=== PATIENT | female | born 1935 | race African-American/Black ===

== ENCOUNTER 2017-12-23 09:01 | Emergency (ER) | payer OTHER ==
[~2017-12-23] VITALS: Ht 160 cm; Wt 86.2 kg
[~2017-12-23 09:01] MED LIST: ACETAMINOPHEN-1 EAC1 PO; COLCHICINE0.6 MG PO; DEMADEX100 MG PO; DEMADEX20 MG PO; GLIPIZIDE ER5 MG; GLUCOPHAGE XR500 MG; HYDRALAZINE 2525 M1 PO; HYDROCHLOROTHIA50 MG; HYDROCODONE-AP1 EAC6 PO; K-DUR 20 MEQ T20 MEQ PO; KLOR-CON 1010 MEQ PO; LEVEMIR SUBQ; LEVSIN0.125 MG PO; LIPITOR10 MG PO; LISINOPRIL40 MG; NIFEDIPINE ER90 M1; NORCO 5-325 TA1 EACH PO; NORFLEX100 MG PO; NORTRIPTYLINE H25 M3; NORTRIPTYLINE H25 M3 PO; NORVASC5 MG PO; NOVOLOG100 UNIT/1 SUBQ; OMEPRAZOLE20 M2; PROTONIX40 M2; SENNA8.6 MG PO; TIROSINT88 MCG; TOPROL XL100 MG PO; TOPROL XL50 MG PO; VENTOLIN HFA 1818 GM INH; ZANTAC 150MG T150 MG PO
[2017-12-23] MEDS ORDERED: MOBIC15 MG PO (10:20)
[2017-12-23 10:29] VITALS: BP 147/74
== END 2017-12-23 10:33 | disposition home or self-care (01) ==
LOC: ER 09:01
DX: M16.11 Unilateral primary osteoarthritis, right hip (principal); E11.9 Type 2 diabetes mellitus without complications; K21.9 Gastro-esophageal reflux disease without esophagitis; E78.00 Pure hypercholesterolemia, unspecified; I11.0 Hypertensive heart disease with heart failure; I50.9 Heart failure, unspecified; Z79.4 Long term (current) use of insulin

== ENCOUNTER → 2018-01-08 | Outpatient (CLI) | payer OTHER ==
[~2018-01-08] MED LIST changes: +MOBIC15 MG PO
== END | disposition home or self-care (01) ==
LOC: RAD 09:24
DX: M25.551 Pain in right hip (principal); I13.0 Hypertensive heart and chronic kidney disease with heart failure and stage 1 through stage 4 chronic kidney disease, or unspecified chronic kidney disease; E11.22 Type 2 diabetes mellitus with diabetic chronic kidney disease; N18.4 Chronic kidney disease, stage 4 (severe); I50.9 Heart failure, unspecified; M19.90 Unspecified osteoarthritis, unspecified site; M10.9 Gout, unspecified; E78.00 Pure hypercholesterolemia, unspecified; K21.9 Gastro-esophageal reflux disease without esophagitis; Z79.891 Long term (current) use of opiate analgesic; Z79.4 Long term (current) use of insulin; Z79.899 Other long term (current) drug therapy; Z98.890 Other specified postprocedural states

== ENCOUNTER 2018-02-06 14:39 | Emergency (ER) | payer OTHER ==
[~2018-02-06] VITALS: Ht 160 cm; Wt 87.1 kg
[2018-02-06] MEDS ORDERED: SENNA8.6 MG PO (15:45)
[2018-02-06] MEDS ORDERED: NORCO 5-325 TA1 EACH PO (15:45)
[2018-02-06] MEDS ORDERED: LIORESAL 10 MG10 MG PO (15:46)
[2018-02-06 15:58] VITALS: BP 158/86
== END 2018-02-06 16:12 | disposition home or self-care (01) ==
LOC: ER 14:39
DX: M54.32 Sciatica, left side (principal); E11.9 Type 2 diabetes mellitus without complications; K21.9 Gastro-esophageal reflux disease without esophagitis; I11.0 Hypertensive heart disease with heart failure; I50.9 Heart failure, unspecified; E78.00 Pure hypercholesterolemia, unspecified; Z79.4 Long term (current) use of insulin

== ENCOUNTER 2019-07-31 07:39 | Emergency (ER) | payer MEDICARE ==
[~2019-07-31] VITALS: Ht 160 cm; Wt 81.7 kg
[~2019-07-31 07:39] MED LIST changes: +AMLODIPINE BESY10 MG PO; +BAYER BACK & B1 EACH PO; +CENTRUM SILVER1 EAC4 PO; +COREG25 MG PO; +IRON325 M1 PO; +LIORESAL 10 MG10 MG PO; +LISINOPRIL10 MG PO; +LISINOPRIL40 MG PO; +PREDNISONE 10 M10 MG PO; +SPIRONOLACTONE25 M1 PO
[2019-07-31 08:46] LABS: ABSOLUTE NEUTROPHILS 3.9 thou/uL (1.4-8.2); BASOPHILS 0.5 % (0.0-2.0); EOSINOPHILS 4.1 % (0.0-3.0); HEMATOCRIT 42.4 % (37.0-47.0); HEMOGLOBIN 13.8 gm/dL (12.0-15.0); LYMPHOCYTES 12.8 % (24.0-44.0); MCH 27.1 pg (26.0-34.0); MCHC 32.5 g/dL (28.0-37.0); MCV 83.3 fL (80.0-100.0); MONOCYTES 7.7 % (1.0-8.0); PLATELET COUNT 167 thou/uL (150-400); POLYS 74.9 % (36.0-66.0); RBC 5.09 mil/uL (4.20-5.00); RDW 16.3 % (10.5-14.5); WBC 5.2 thou/uL (4.0-11.0)
[2019-07-31 08:58] LABS: ANION GAP 11 mmol/L (7-16); BUN 29 mg/dL (7-18); CALCIUM 8.8 mg/dL (8.5-10.1); CHLORIDE 104 mmol/L (98-107); CO2 28 mmol/L (21-32); CREATININE 1.3 mg/dL (0.6-1.0); GLUCOSE 114 mg/dL (74-106); SODIUM 143 mmol/L (136-145)
[2019-07-31 09:07] LABS: TROPONIN-I <0.06 ng/mL (<0.06)
[2019-07-31 09:29] LABS: URINE BILIRUBIN NEGATIVE (Negative); URINE BLOOD 1+ (Negative); URINE CLARITY CLEAR; URINE COLOR YELLOW; URINE GLUCOSE-RANDOM* NEGATIVE (Negative); URINE KETONES NEGATIVE (Negative); URINE LEUKOCYTES-REFLEX TRACE (Negative); URINE NITRITE-REFLEX NEGATIVE (Negative); URINE PROTEIN (DIPSTICK) 2+ (Negative); URINE UROBILINOGEN 0.2 E.U./dl (0.2-1.0)
[2019-07-31 09:42] LABS: CASTS None Seen /LPF (None Seen); SQUAMOUS 4-10 Moderate /LPF (0-3); URINE WBC-REFLEX 0-5 Rare /HPF (0-5)
[2019-07-31 09:43] LABS: BACTERIA-REFLEX None Seen /HPF (None Seen); CRYSTALS None Seen /LPF (None Seen); URINE RBC 0-2 Rare /HPF (0-2)
[2019-07-31] MEDS ORDERED: POTASSIUM20 PO (11:19)
[2019-07-31] MEDS ORDERED: LOPERAMIDE 2 MG2 M1 PO (11:20)
[2019-07-31 11:50] VITALS: BP 159/74
--- NOTE | 2019-08-02 07:56 | EKG ---
[facility] [place] [address] ELECTROCARDIOGRAM REPORT Name: CHAYITO MARTINEZ Room #: DEP [facility]#: [id number] Admission: 07/31/19 Attend Phys: Discharge: 07/31/19 Date of : 35 Report #: [id number] THIS REPORT FOR: cc: Chadwick Monzon MD, Keninde A. 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[facility] : 1935 Requested By: Jethro Renee Order Number: [id number] MD: Lavon Gresham Measurements Intervals Harvey Rate: 78 P: -15 GA: 161 QRS: 74 QRSD: 116 T: 70 QT: 424 QTc: 484 Interpretive Statements Sinus rhythm Atrial premature complexes Right ventricular conduction delay Compared to ECG 09/11/2018 10:30:06 Atrial premature complex(es) now present Electronically Signed On 08-02-2019 7:54:55 CDT by Lavon Gresham [email or web address] <ELECTRONICALLY SIGNED> By: Lavon Gresham MD, [facility] 08/02/19 0754 0801 0801 Lavon Gresham MD, [facility] /EPI
== END 2019-07-31 11:50 | disposition home or self-care (01) ==
LOC: ER 07:39
PROVIDERS: Emergency Medicine
DX: R42 Dizziness and giddiness (principal); R19.7 Diarrhea, unspecified; R51 Headache; E11.9 Type 2 diabetes mellitus without complications; K21.9 Gastro-esophageal reflux disease without esophagitis; E78.00 Pure hypercholesterolemia, unspecified; M10.9 Gout, unspecified; I25.10 Atherosclerotic heart disease of native coronary artery without angina pectoris; I11.0 Hypertensive heart disease with heart failure; I50.9 Heart failure, unspecified; Z79.899 Other long term (current) drug therapy; Z79.82 Long term (current) use of aspirin; Z79.4 Long term (current) use of insulin

== ENCOUNTER 2020-04-08 10:44 | Emergency (ER) | payer MEDICARE ==
[~2020-04-08] VITALS: Ht 160 cm; Wt 81.7 kg
[~2020-04-08 10:44] MED LIST changes: +LOPERAMIDE 2 MG2 M1 PO; +POTASSIUM20 PO
[2020-04-08 11:13] LABS: URINE BILIRUBIN NEGATIVE (Negative); URINE BLOOD TRACE (Negative); URINE CLARITY CLEAR; URINE COLOR YELLOW; URINE GLUCOSE-RANDOM* NEGATIVE (Negative); URINE KETONES NEGATIVE (Negative); URINE NITRITE-REFLEX NEGATIVE (Negative); URINE PROTEIN (DIPSTICK) 2+ (Negative); URINE UROBILINOGEN 0.2 E.U./dl (0.2-1.0)
[2020-04-08 11:14] LABS: URINE LEUKOCYTES-REFLEX 3+ (Negative)
[2020-04-08 11:22] LABS: SQUAMOUS >10 Many /LPF (0-3)
[2020-04-08 11:23] LABS: BACTERIA-REFLEX >30 Many /HPF (None Seen); CASTS None Seen /LPF (None Seen); CRYSTALS None Seen /LPF (None Seen); URINE RBC 0-2 Rare /HPF (0-2); URINE WBC-REFLEX >25 Many /HPF (0-5)
[2020-04-08 11:51] LABS: ABSOLUTE NEUTROPHILS 4.3 thou/uL (1.4-8.2); BASOPHILS 0.5 % (0.0-2.0); EOSINOPHILS 3.5 % (0.0-3.0); HEMATOCRIT 41.2 % (37.0-47.0); HEMOGLOBIN 12.9 gm/dL (12.0-15.0); LYMPHOCYTES 10.5 % (24.0-44.0); MCH 27.1 pg (26.0-34.0); MCHC 31.2 g/dL (28.0-37.0); MCV 86.7 fL (80.0-100.0); MONOCYTES 6.8 % (1.0-8.0); PLATELET COUNT 137 thou/uL (150-400); POLYS 78.7 % (36.0-66.0); RBC 4.75 mil/uL (4.20-5.00); WBC 5.5 thou/uL (4.0-11.0)
[2020-04-08 12:05] LABS: CALCIUM 9.1 mg/dL (8.5-10.1); CREATININE 1.6 mg/dL (0.6-1.0)
[2020-04-08 12:07] LABS: POTASSIUM 4.7 mmol/L (3.5-5.1)
[2020-04-08] MEDS ORDERED: KEFLEX500 M1 PO (12:18)
[2020-04-08 12:31] VITALS: BP 169/65
[2020-04-08 14:59] LABS: ANISOCYTOSIS 2+; OVALOCYTES FEW
== END 2020-04-08 12:55 | disposition home or self-care (01) ==
LOC: ER 10:44
PROVIDERS: Emergency Medicine
DX: N93.8 Other specified abnormal uterine and vaginal bleeding (principal); N39.0 Urinary tract infection, site not specified; E11.9 Type 2 diabetes mellitus without complications; K21.9 Gastro-esophageal reflux disease without esophagitis; I11.0 Hypertensive heart disease with heart failure; I50.9 Heart failure, unspecified; M10.9 Gout, unspecified; E78.00 Pure hypercholesterolemia, unspecified; Z96.653 Presence of artificial knee joint, bilateral; Z79.899 Other long term (current) drug therapy; Z79.82 Long term (current) use of aspirin

== ENCOUNTER 2020-10-30 17:58 | Inpatient (IN) | payer MEDICARE ==
[~2020-10-30] VITALS: Ht 160 cm; Wt 92.8 kg
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
[~2020-10-30 17:58] MED LIST changes: +KEFLEX500 M1 PO
[2020-10-30 18:00] VITALS: BP 141/76
--- NOTE | 2020-10-30 18:14 | NUR ---
HARSHAD HUBER (DAUGHTER) [phone]
[2020-10-30 18:15] LABS: ABSOLUTE NEUTROPHILS 4.3 thou/uL (1.4-8.2); BASOPHILS 0.5 % (0.0-2.0); EOSINOPHILS 1.7 % (0.0-3.0); HEMATOCRIT 34.2 % (37.0-47.0); HEMOGLOBIN 10.8 gm/dL (12.0-15.0); LYMPHOCYTES 14.7 % (24.0-44.0); MCH 27.2 pg (26.0-34.0); MCHC 31.6 g/dL (28.0-37.0); MONOCYTES 6.4 % (1.0-8.0); PLATELET COUNT 204 thou/uL (150-400); POLYS 76.7 % (36.0-66.0); RBC 3.98 mil/uL (4.20-5.00); RDW 19.2 % (10.5-14.5); WBC 5.6 thou/uL (4.0-11.0)
[2020-10-30 18:22] LABS: ANION GAP 13 mmol/L (7-16); BUN 41 mg/dL (7-18); CALCIUM 8.8 mg/dL (8.5-10.1); CHLORIDE 108 mmol/L (98-107); CO2 25 mmol/L (21-32); CREATININE 1.9 mg/dL (0.6-1.0); GLUCOSE 175 mg/dL (74-106); POTASSIUM 3.8 mmol/L (3.5-5.1); SODIUM 146 mmol/L (136-145)
[2020-10-30 18:30] LABS: APTT 29.3 Seconds (24.5-32.8); INR 1.21; PROTIME 13.1 Seconds (10.5-12.1)
[2020-10-30 18:33] LABS: ALBUMIN 3.5 g/dL (3.4-5.0); LIPASE 62 U/L (73-393); SGOT 44 U/L (15-37); SGPT 59 U/L (30-65); TOTAL BILIRUBIN 0.8 mg/dL (0.2-1.0); TOTAL PROTEIN 7.2 g/dL (6.4-8.2); TROPONIN-I <0.06 ng/mL (<0.06)
[2020-10-31] VITALS (7 sets, daily range): BP systolic 114–165; BP diastolic 55–71
[2020-10-31] MEDS ORDERED: LIPITOR 40 MG T40 M1 PO (05:22)
[2020-10-31] MEDS ORDERED: ALLOPURINOL 10100 M1 PO (05:23)
[2020-10-31] MEDS ORDERED: ELIQUIS2.5 MG PO (05:23)
[2020-10-31] MEDS ORDERED: ZESTRIL40 MG PO (05:25)
[2020-10-31] MEDS ORDERED: OMEPRAZOLE 20 M20 M1 PO (05:27)
--- NOTE | 2020-10-31 07:26 | EKG ---
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 <ELECTRONICALLY SIGNED> By: Niko Tovar MD, [facility] 10/31/20 0726 180 06 Niko Tovar MD, [facility] /EPI
--- NOTE | 2020-10-31 08:07 | NUR ---
ADMITTED FROM ER PER CART AT 0610. DENIES COMPLAINTS OF PAIN. ADMISSION PROCESS STARTED. TELEMETRY SHOWS SR. ORIENTED TO ROOM AND FLOOR POLICIES. CONTINUE TO ASSES.
[2020-10-31 09:22] LABS: HEMATOCRIT 32.5 % (37.0-47.0); HEMOGLOBIN 10.1 gm/dL (12.0-15.0); MCH 26.7 pg (26.0-34.0); MCV 86.1 fL (80.0-100.0); RBC 3.77 mil/uL (4.20-5.00); RDW 18.8 % (10.5-14.5); WBC 5.9 thou/uL (4.0-11.0)
[2020-10-31 09:29] LABS: CALCIUM 8.6 mg/dL (8.5-10.1); POTASSIUM 3.5 mmol/L (3.5-5.1)
--- NOTE | 2020-10-31 12:28 | 2DMMODE ---
[facility] [place] [address] 2 D/M-MODE ECHOCARDIOGRAM Name: CHAYITO MARTINEZ Room #: 205-P ADM IN M.R.#: [id number] Admission: 10/30/20 Attend Phys: Ramírez Miranda MD Discharge: Date of : 35 Report #: [id number] THIS REPORT FOR: cc: Chadwick Monzon MD, Keninde A. MD Santiago, Patrick MD [facility] ~ APPROVED REPORT Study performed: 10/31/2020 11:33:28 EXAM: Comprehensive 2D, Doppler, and color-flow Echocardiogram Patient Location: Bedside Room #: 205 Status: routine BSA: 1.90 HR: 54 bpm BP: 154/64 mmHg Rhythm: NSR Other Information Study Quality: Adequate Indications Syncope, leg edema, short of breath. Hx: CHF, aorta tear, HTN, HLP, DM. 2D Dimensions RVDd: 50.71 mm IVSd: 14.21 (7-11mm) LVOT Diam: 18.92 (18-24mm) LVDd: 43.96 mm PWd: 11.77 (7-11mm) Ascending Ao: 33.65 (22-36mm) LVDs: 28.46 (25-40mm) Left Atrium: 34.68 (27-40mm) Aortic Root: 31.78 mm Volumes Left Atrial Volume (Systole) Single Plane 4CH: 54.46 mL Aortic Valve AoV Peak Roosevelt.: 1.93 m/s AO Peak Gr.: 14.97 mmHg LVOT Max P.00 mmHg AO Mean Gr.: 6.62 mmHg AO V2 Mean: 1.21 m/s LVOT Max V: 1.00 m/s [facility] [place] [address] [place] [address] 2 D/M-MODE ECHOCARDIOGRAM Name: MARTINEZMARKA Room #: [address] [place] [address] IN ..#: [id number] Admission: 10/30/20 Attend Phys: Jaime Maravilla Discharge: Date of : 35 Report #: [id number] AO V2 VTI: 37.96 cm TORRES Vmax: 1.45 cm2 AI Vmax: 4.26 m/s AI [place]: 2.58 m/s2 AI PHT: 479.20 ms Mitral Valve E/A Ratio: 1.2 MV Decel. Time: 164.23 ms MV E Max Roosevelt.: 0.80 m/s MV A Roosevelt.: 0.66 m/s MV PHT: 47.63 ms IVRT: 78.43 ms Pulmonary Valve PV Peak Roosevelt.: 0.90 m/s PV Peak Gr.: 3.27 mmHg Tricuspid Valve TR Peak Roosevelt.: 3.79 m/s RAP Estimate: 15.00 mmHg TR Peak Gr.: 58.00 mmHg PA Pressure: 73.00 mmHg Left Ventricle The left ventricle is normal size. Flattened septum consistent with right ventricular volume/pressure overload. There is normal LV segmental wall motion. Moderate concentric left ventricular hypertrophy. Left ventricular systolic function is normal. LVEF is 60-65%. Right Ventricle Right ventricle is severely dilated. Atria Left atrium is mildly dilated. Right atrium is severely dilated. Aortic Valve The aortic valve is normal in structure; leaflets are moderately calcified. Mild aortic regurgitation. Mild aortic stenosis (TORRES by continuity equation is 1.5cm2). Mitral Valve Mitral valve leaflets are thickened. There is mitral annular calcification. Mild mitral regurgitation. No evidence of mitral valve stenosis. [facility] [address] [place] [address] 2 D/M-MODE ECHOCARDIOGRAM Name: CHAYITO MARTINEZ Room #: [address] [place] [address] IN ..#: [id number] Admission: 10/30/20 Attend Phys: Jaime Maravilla Discharge: Date of : 35 Report #: [id number] Tricuspid Valve The tricuspid valve is normal in structure. Severe tricuspid regurgitation. Estimated PAP is 70mmHg. Pulmonic Valve The pulmonary valve is normal in structure. Moderate pulmonic regurgitation. Great Vessels The aortic root is normal in size. The ascending aorta is normal in size. IVC is dilated and collapses <50% with inspiration. Pericardium There is no pericardial effusion. <Conclusion> Normal left ventricular size with moderate concentric hypertrophy Ejection fraction 60-65% Right ventricle severely dilated/normal wall thickness Left atrium mildly dilated The right atrium severely dilated Color-flow Doppler study was performed of the aortic/mitral/tricuspid/pulmonary valve Aortic valve moderately calcified Mild aortic valve insufficiency Mild aortic valve stenosis aortic valve area estimated 1.5 cm Severe tricuspid valve insufficiency Severe pulmonary hypertension PA pressure estimated at 70 mmHg No pericardial effusion IVC moderately dilated but responsive to respiration Normal aortic root size <ELECTRONICALLY SIGNED> By: Niko Tovar MD, [facility] 10/31/20 1228 1228 1228 Niko Tovar MD, [facility] /INF
--- NOTE | 2020-10-31 16:04 | NUR ---
PATIENT ADMITTED AT SHIFT CHANGE. VSS THROUGH OUT THE DAY. SEEN BY DR. HARLEY. CONSULTS CALLED FOR CTS AND PULMONARY. NOTED PRN DR. CRICKET HERNANDEZ TO LOOK AT INSULIN ORDERS. SINUS RHYTHM ON THE MONITOR. NEGATIVE ORTHOSTATIC BLOOD PRESSURES. REMAINS ON 5L OXYGEN NC. ECHO DONE. PATIENT DENIES ANY NEEDS OR CONCERNS AT THIS TIME.
--- NOTE | 2020-10-31 17:22 | NUR ---
Met with patient and dtr at bedside. patient resides in apt. she has approx 10steps to apt. She reports she does well with steps. She has a walker for community. She cont to drive. She reports she leaves her home for groceries, getting the mail, apts. She reports many times she stays at home. She does get her mail daily. She has supportive children. Patient has home oxygen via [employer] usu 2 liters at home. Patient admitted from syncople episode. Patient with no hx of HH. Therapy evals in process.
[2020-11-01] VITALS (7 sets, daily range): BP systolic 138–172; BP diastolic 65–86
[2020-11-01 04:49] LABS: CALCIUM 8.3 mg/dL (8.5-10.1); CREATININE 2.4 mg/dL (0.6-1.0); POTASSIUM 4.2 mmol/L (3.5-5.1)
--- NOTE | 2020-11-01 06:47 | NUR ---
NO SIGNIFICANT EVENTS DURING THE SHIFT. PT SLEPT MOST OF THE NIGHT. RESPIRATIONS EVEN AND UNLABORED. 2-3L NC. NOCTURNAL DESAT STUDY COMPLETED DURING THE NIGHT. VSS. AFEBRILE. IVF INFUSING ORDERED. NO C/O PAIN. MILD SOA W/ EXERTION. FALL PRECAUTIONS IN PLACE. PROGRESSING TOWARD POC GOALS. WILL GIVE REPORT TO ONCOMING NURSE.
[2020-11-01 13:56] LABS: BE(vivo) -1.5 mmol/L (-2 to +3); PO2 105.2 mmHg (80.0-100.0); pH 7.316 (7.360-7.450); sO2 97.3 % (92.0-98.0)
--- NOTE | 2020-11-01 17:16 | NUR ---
Met with patient and dtr. Discussed post acute care and patient declines due to rising COVID 19 rates. Patient has [employer] list if she should change her mind.
--- NOTE | 2020-11-01 19:49 | NUR ---
PATIENT STABLE THROUGH OUT THE DAY, WORKED WITH THERAPY, AMBULATED IN HALLWAY. UP TO CHAIRS FOR MEALS. VQ SCAN DONE. REMAINS ON 2L NC. SATS MID TO HIGH 90'S. CONTINUOUS PULSE OX IN PLACE. PATIENT VOICED PAIN TO BILATERAL FEET THIS AFTERNOON, NOTIFIED DR. HARLEY. RE-0RDERED HOME MEDICATIONS FOR GOUT. PATIENT VOICED RELIEF AFTER ADMINISTRATION. PATIENT VOICES NO FURTHER NEEDS OR CONCERNS AT THIS TIME.
--- NOTE | 2020-11-02 01:52 | NUR ---
ASSUMED CARE OF PT AT 1900, PT A/O X4 ON 2LPM NC WITH IS HER HM BASELINE. ASSESSMENT COMPLETED NOTED. PT DENIES PAIN AT THIS TIME, WILL CONTINUE TO WORK TOWARDS PT'S POC.
[2020-11-02 05:24] VITALS: BP 133/80
[2020-11-02 07:32] VITALS: BP 162/77
[2020-11-02 10:46] LABS: CALCIUM 8.9 mg/dL (8.5-10.1); CREATININE 2.2 mg/dL (0.6-1.0)
[2020-11-02 11:36] VITALS: BP 136/49
--- NOTE | 2020-11-02 12:27 | NUR ---
Possible dc home tomorrow. Hh orders requested. Hh referral discussed with the pt and her dtr Sarah at bedside. Pt is planning on staying with her dtr at de and would like hh to come see her at [address], [id number]. Dtr's number is [phone]. Pt denies hh agency preference. Referral called to [facility] and their liason notes they can accept. She will visit with the pt in the am to confirm the above contact info. The pt has home o2 in place. Pt's dtr to call her pcp and make a f/u appt in 1 week. They are also wanting to request a letter for the pt's landlord/apt complex to release her lease as she is not able to do the 20 some steps in and out safely. They are looking into a sr/disabled housing option. They will request this from the pcp office.
--- NOTE | 2020-11-02 15:02 | NUR ---
PT RESTING COMFORTABLY. WORKED WITH PT/OT TODAY. UP TO CHAIR FOR MAJORITY OF SHIFT. PT CONTINUES ON 2L NC. ORTHOSTATIC BP'S WERE ACCEPTABLE. POSSIBLY DC HOME TOMORROW, NEEDS TO BE WALKED PRIOR TO DC. PT AFEBRILE, ADEQUATE UOP, NO BM, APPROPRIATE APPETITE. PT AND FAMILY HAVE BEEN THOUROUGHLY UPDATED AND EDUCATED ON PT CONDITION AND POC. PT SLOWLY PROGRESSING TOWARDS POC.
[2020-11-02 15:42] VITALS: BP 157/73
[2020-11-02 20:06] VITALS: BP 154/81
[2020-11-03 01:39] VITALS: BP 189/102
--- NOTE | 2020-11-03 01:52 | NUR ---
ASSUMED CARE OF PT AT 1900, PT IS A/O X 4 ON 2LNC. ASSESSMENT COMPLETED NOTED. PT IS CONCERNED ABOUT GOING HOME ON 11/03 DO TO HER FEELING SOA. AT 0140 PT HAD BRADYCARDIC EPISODE WITH A HR OF 35BPM AND SYMPTOMATIC. PT WAS SLEEPING DURING THE EPISODE, UPON AWAKENING PT WAS DISORIENTED, VS WITH BLOOD SUGAR OBTAINED NOTED, PERFORMANCE ARCHITECT NOTIFIED WITH ORDERS TO MONITOR AND CONTACT CARDIOLOGY IF SUBSEQUENT EPISODES OCCUR. WILL CONTINUE TO WORK TOWARDS PT'S POC.
[2020-11-03 05:34] VITALS: BP 156/81
[2020-11-03 07:40] VITALS: BP 155/92
[2020-11-03 11:10] VITALS: BP 153/78
--- NOTE | 2020-11-03 12:06 | NUR ---
Possible dc home with hh this weekend. [facility] liason here and visited with the pt. She would like to use them for services. [place] to [phone] and their contact manager nurse notified at [phone]. Pt still being monitored for low heart rate.
[2020-11-03 17:00] VITALS: BP 152/67
--- NOTE | 2020-11-03 17:11 | NUR ---
PT RESTING COMFORTABLY ON 2L NC. UP WITH PT/OT. PT AFEBRILE, ADEQUATE UOP, BM X1, APPROPRIATE APPETITE. HAD ONE BOUT OF SYMPTOMATIC BRADYCARDIA WHILE WORKING WITH PT. PT HAD NO MAL EFFECTS. PT AND FAMILY HAVE BEEN THOUROUGHLY UPDATED AND EDUCATED. PT PROGRESSING TOWARDS POC.
[2020-11-03 19:39] VITALS: BP 148/80
[2020-11-04 04:40] VITALS: BP 132/79
--- NOTE | 2020-11-04 04:52 | NUR ---
Pt. rested quietly during the night when checked on during frequent rounds. She offers no c/o pain or discomfort. Bed alarm is on.
[2020-11-04 07:40] VITALS: BP 144/78
[2020-11-04 09:09] LABS: HEMATOCRIT 33.8 % (37.0-47.0); HEMOGLOBIN 10.5 gm/dL (12.0-15.0); MCH 26.7 pg (26.0-34.0); RBC 3.92 mil/uL (4.20-5.00); RDW 19.6 % (10.5-14.5); WBC 9.1 thou/uL (4.0-11.0)
[2020-11-04 09:17] LABS: CALCIUM 9.1 mg/dL (8.5-10.1); MAGNESIUM 2.3 mg/dL (1.8-2.4); POTASSIUM 4.6 mmol/L (3.5-5.1)
[2020-11-04 09:18] LABS: CREATININE 3.2 mg/dL (0.6-1.0)
[2020-11-04 11:34] VITALS: BP 139/78
[2020-11-04 15:45] VITALS: BP 142/76
--- NOTE | 2020-11-04 16:27 | NUR ---
PT IS GETTING STRONGER BY THE DAY. AMBULATED WITH THERAPY AROUND UNIT AND TOLERATED WELL. SHE IS PLEASATN WITH CARE. RESPIRAITONS ARE NON LABORED. WILL CONT WITH PLAN OF CARE.
[2020-11-04 19:24] VITALS: BP 154/69
[2020-11-05 03:35] LABS: ABSOLUTE NEUTROPHILS 7.1 thou/uL (1.4-8.2); BASOPHILS 0.1 % (0.0-2.0); HEMATOCRIT 33.4 % (37.0-47.0); HEMOGLOBIN 10.5 gm/dL (12.0-15.0); LYMPHOCYTES 3.6 % (24.0-44.0); MCHC 31.5 g/dL (28.0-37.0); MCV 85.9 fL (80.0-100.0); MONOCYTES 5.1 % (1.0-8.0); PLATELET COUNT 202 thou/uL (150-400); POLYS 91.2 % (36.0-66.0); RBC 3.89 mil/uL (4.20-5.00); RDW 19.5 % (10.5-14.5); WBC 7.8 thou/uL (4.0-11.0)
--- NOTE | 2020-11-05 03:59 | NUR ---
assumed pt care at 1900, awake, alert and oriented, sr/sb on tele with 1davb, assessments as charted, c/o feeling alittle dizzy when getting up, meds given as per may, no acute distress noted this shift, will continue to monitor and follow poc
[2020-11-05 04:43] VITALS: BP 144/80
[2020-11-05 05:53] LABS: CALCIUM 8.5 mg/dL (8.5-10.1); MAGNESIUM 2.3 mg/dL (1.8-2.4); POTASSIUM 4.7 mmol/L (3.5-5.1)
[2020-11-05 07:49] VITALS: BP 143/82
[2020-11-05 11:23] VITALS: BP 134/69
[2020-11-05 15:07] VITALS: BP 126/65
[2020-11-05 20:47] VITALS: BP 145/73
--- NOTE | 2020-11-06 04:29 | NUR ---
RECEIVED THE PATIENT ALERT AND ORIENTED X4.ON NASAL CANNULA AT 2LPM.WITH KOCH CATHETER INTACT.NOT IN PAIN OR DISTRESS.IVAN WADE APPLIED AND MONITORED.ALL NEEDS ATTENDED.MEDS GIVEN PER MAY.
[2020-11-06 08:17] VITALS: BP 125/71
[2020-11-06] MEDS ORDERED: PREDNISONE 20 M20 M1 PO (12:49)
[2020-11-06] MEDS ORDERED: ACETAMINOPHEN325 M1 PO (12:49)
[2020-11-06] MEDS ORDERED: PREDNISONE 10 M10 MG PO (12:52)
[2020-11-06 12:55] VITALS: BP 125/71
[2020-11-06 13:30] VITALS: BP 125/71
--- NOTE | 2020-11-06 14:54 | NUR ---
Spoke with patient plan dc to home with care. Faxed orders to [place] with dtrs address for home health care. Patient report she has oxygen at home and a walker. [facility]is confirmed they rec orders faxed. [facility] following.
[2020-11-06 16:27] VITALS: BP 131/55
[2020-11-06 16:32] VITALS: BP 131/55
--- NOTE | 2020-11-06 19:50 | NUR ---
PATIENT DISCHARGED HOME WITH FAMILY. DAUGHTER BROUGHT IN PATIENTS HOME PORTABLE OXYGEN TANK. IV AND TELE REMOVED. PATIENT DID VOID AFTER CATHETER REMOVAL. DISCHARGE EDUCATION DONE WITH PATIENT NO QUESTIONS OR CONERNS AT TIME OF TEACHING.
--- NOTE | 2020-11-08 15:09 | NUR ---
Call rec'd from [facility] Buster leung yesterday requesting clincal be faxed and dtrs also came by the unit to request help getting the pt to SNF as they felt she is too weak to be at home. Clincal faxed. [place] leung notified and she will have their IMPLEMENTATION MANAGER and Therapy team eval and facilitate SNF placement from home to [facility]. [facility] has submitted an auth request to pt's ins plan.
== END 2020-11-06 19:50 | disposition home health service (06) | DRG 917 ==
LOC: ER 17:58 → EROBS 21:45 → 2N 21:45
PROVIDERS: Emergency Medicine; Internal Medicine; Nurse Practitioner; Nurse Practitioner Family; ADMIT Internal Medicine; ATTEND Internal Medicine
PROC: 5A0935A Assistance with Respiratory Ventilation, Less than 24 Consecutive Hours, High Flow/Velocity Cannula (ICD-10-PCS; principal; 2020-10-31)
DX: T50.1X1A Poisoning by loop [high-ceiling] diuretics, accidental (unintentional), initial encounter (principal); I71.02 Dissection of abdominal aorta; J96.21 Acute and chronic respiratory failure with hypoxia; I50.33 Acute on chronic diastolic (congestive) heart failure; J96.02 Acute respiratory failure with hypercapnia; I13.0 Hypertensive heart and chronic kidney disease with heart failure and stage 1 through stage 4 chronic kidney disease, or unspecified chronic kidney disease; N17.9 Acute kidney failure, unspecified; I50.32 Chronic diastolic (congestive) heart failure; E87.2 Acidosis; I25.10 Atherosclerotic heart disease of native coronary artery without angina pectoris; K21.9 Gastro-esophageal reflux disease without esophagitis; E78.00 Pure hypercholesterolemia, unspecified; E11.22 Type 2 diabetes mellitus with diabetic chronic kidney disease; N18.9 Chronic kidney disease, unspecified; I27.20 Pulmonary hypertension, unspecified; G47.33 Obstructive sleep apnea (adult) (pediatric); E66.01 Morbid (severe) obesity due to excess calories; D64.9 Anemia, unspecified; M10.9 Gout, unspecified; E78.5 Hyperlipidemia, unspecified; Z60.2 Problems related to living alone; Z96.642 Presence of left artificial hip joint; Z96.653 Presence of artificial knee joint, bilateral; Z20.822 Contact with and (suspected) exposure to COVID-19; Z98.42 Cataract extraction status, left eye; Z98.41 Cataract extraction status, right eye; Z68.36 Body mass index [BMI] 36.0-36.9, adult; Z79.01 Long term (current) use of anticoagulants; Z79.4 Long term (current) use of insulin; Z79.82 Long term (current) use of aspirin; Z79.899 Other long term (current) drug therapy; I95.2 Hypotension due to drugs
CPT/HCPCS: 10081

== ENCOUNTER 2020-11-20 14:22 | Inpatient (IN) | payer MEDICARE ==
[~2020-11-20] VITALS: Ht 165.1 cm; Wt 98.9 kg
--- NOTE | ~2020-11-20 | EMS ---
[address] [address] EMS Patient Care Report Name: CHAYITO MARTINEZ Room #: 436-P ADM IN M.R.#: [id number] Admission: 11/20/20 Attend Phys: Sissy Benjamin Discharge: Date of : 35 Report #: [id number] THIS REPORT FOR: //name// Report Transmitted: 11/20/2020 20:16 EMS Care Summary [place], [place]/[facility] Incident [id number] @ 11/20/2020 13:52 Incident Location [address] [place] [address] Patient CHAYITO MARTINEZ Female, 85 Years 1935 Patient Address [address] [place] [address] Patient History Cardiac Arrythmia,Chronic Obstructive Pulmonary Disease (COPD),Diabetes,Hypertension (HTN),Gout,Edema,Chronic Kidney Disease, Patient Allergies No known allergies, Patient Medications Eliquis, Torsemide, Famotidine, Atorvastatin, Allopurinol, Pantoprazole, Colchicine, Amlodipine, Hydralazine, Carvedilol, Levemir, Nortriptyline, Chief Complaint Altered mental status Disposition Transported Lights/[place] Dispatch Reason Falls Transported To [facility] Narrative Arrived on scene of a fall to find our patient supine on the back deck of the [facility] [address] [place] [address] EMS Patient Care Report Name: CHAYITO MARTINEZ Room #: 436-P [facility] IN ..#: [id number] Admission: 11/20/20 Attend Phys: Sissy Benjamin Discharge: Date of : 35 Report #: [id number] home. Family stated that the patient had been released from an inpatient medical rehabilitation facility earlier that day after having spent close to a month in that facility. Family reported the patient had been in that facility after she had experienced an abrupt change in mental status; family was unsure of what the patient's actual diagnosis had been. Family described the patient's fall from the chair as the "she went limp then slid down [from the chair]." Family did not believe the patient had hit her head. Patient was laying supine upon patient contact, and responsive to loud verbal stimuli, but not able to answer orientation questions. No gross injuries or bleeding noted. Vital signs and 3 lead EKG obtained. IV access attempted, pacer pads placed on patient. Patient moved to ambulance where IV access obtained in right AC and left EJ. Atropine administration was effective in raising the patient's blood pressure to within common BP range limits and bringing her heart rate into the 70-80 bpm range. Emergent transport initiated. During transport patient began to regain some consciousness and started to complain of a dry mouth and was alert to name. Patient transferred to care of receiving facility without further change in patient condition. Initial Vitals @14:18P: 80,TN Suspected: false @14:01P: 39, @14:08P: 55, @14:03P: 39, @14:02P: 40, @14:05P: 38, @13:57P: 36,SpO2: 90, @14:00P: 48,SpO2: 95, @14:06P: 38, @14:21P: 83, @14:09P: 58,R: 12,BP: 111/56,GCS: 13,SpO2: 94,Revised Trauma: 12, @13:58P: 29,R: 12,BP: 87/53,GCS: 11,Glucose: 243,SpO2: 92,Revised Trauma: 10, Assessments @13:55MENTAL:Confused,SKIN:HEENT:Eyes: No Abnormalities,Neck/Airway: No Abnormalities,LUNG SOUNDS:Left Upper: No Abnormalities,Right Upper: No Abnormalities,Left Lower: No Abnormalities,Right Lower: No Abnormalities,ABDOMEN:Left Upper: No Abnormalities,Right Upper: No Abnormalities,Left Lower: No Abnormalities,Right Lower: No Abnormalities,PELVIS//GI:No Abnormalities,EXTREMITIES:Left Arm: Edema,Left Leg: Edema,Right Leg: Edema,Right Arm: Edema,PULSE:Radial: Absent,Carotid: 1+ Thready,NEURO:Slurred Speech,@14:17MENTAL:Person Oriented,Confused,SKIN:HEENT:LUNG SOUNDS:ABDOMEN:PELVIS//GI:EXTREMITIES:PULSE:Radial: 2+ Normal,NEURO: Impression Altered Mental Status [address] [address] EMS Patient Care Report Name: CHAYITO MARTINEZ Room #: 436-P ADM IN M.R.#: [id number] Admission: 11/20/20 Attend Phys: Sissy Benjamin Discharge: Date of : 35 Report #: [id number] Procedures @13:55ALS AssessmentResponse: UnchangedSucceeded@13:553-Lead ECGResponse: UnchangedSucceeded@14:08Saline Lock 10cc (18 ga) Site: External Jugular-LeftResponse: UnchangedSucceeded@14:1812-Lead ECGResponse: UnchangedSucceeded@13:55Saline Lock 0cc (20 ga) Site: Antecubital-LeftResponse: UnchangedFailed@14:07Saline Lock 10cc (18 ga) Site: Antecubital-RightResponse: UnchangedSucceeded@14:08Atropine - 0.5 Milligrams (mg) - Intravenous (IV)Response: Improved@PTAOxygen FlowRate: 4 Device: Nasal Cannula (NC) Response: UnchangedSucceeded Timeline SPANISH TRANSLATOR,Oxygen FlowRate: 4 Device: Nasal Cannula (NC) Response: UnchangedSucceeded, 13:51,Call Received 13:51,Dispatch Notified 13:52,Dispatched 13:53,En Route 13:55,At Patient 13:55,On Scene 13:55,ALS Assessment,Response: UnchangedSucceeded, 13:55,3-Lead ECG,Response: UnchangedSucceeded, 13:55,Saline Lock 0cc 20 ga Site: Antecubital-Left,Response: UnchangedFailed, 13:57,BP: / M,PULSE: 36,RR: R,SPO2: 90 Ox,ETCO2: ,BG: ,PAIN: ,GCS: , 13:58,BP: 87/53 M,PULSE: 29,RR: 12 R,SPO2: 92 Ox,ETCO2: ,B,PAIN: ,GCS: 11, 14:00,BP: / M,PULSE: 48,RR: R,SPO2: 95 Ox,ETCO2: ,BG: ,PAIN: ,GCS: , 14:01,BP: / M,PULSE: 39,RR: R,SPO2: Ox,ETCO2: ,BG: ,PAIN: ,GCS: , 14:02,BP: / M,PULSE: 40,RR: R,SPO2: Ox,ETCO2: ,BG: ,PAIN: ,GCS: , 14:03,BP: / M,PULSE: 39,RR: R,SPO2: Ox,ETCO2: ,BG: ,PAIN: ,GCS: , 14:05,BP: / M,PULSE: 38,RR: R,SPO2: Ox,ETCO2: ,BG: ,PAIN: ,GCS: , 14:06,BP: / M,PULSE: 38,RR: R,SPO2: Ox,ETCO2: ,BG: ,PAIN: ,GCS: , 14:07,Saline Lock 10cc 18 ga Site: Antecubital-Right,Response: UnchangedSucceeded, 14:08,Saline Lock 10cc 18 ga Site: External Jugular-Left,Response: UnchangedSucceeded, 14:08,Atropine - 0.5 Milligrams (mg) - Intravenous (IV),Response: Improved 14:08,BP: / M,PULSE: 55,RR: R,SPO2: Ox,ETCO2: ,BG: ,PAIN: ,GCS: , 14:09,BP: 111/56 M,PULSE: 58,RR: 12 R,SPO2: 94 Ox,ETCO2: ,BG: ,PAIN: ,GCS: 13, 14:09,Depart Scene 14:18,12-Lead ECG,Response: UnchangedSucceeded, 14:18,BP: / M,PULSE: 80,RR: R,SPO2: Ox,ETCO2: ,BG: ,PAIN: ,GCS: , 14:19,At Destination 14:21,BP: / M,PULSE: 83,RR: R,SPO2: Ox,ETCO2: ,BG: ,PAIN: ,GCS: , 14:39,Call Closed Disclaimer [facility] [address] [facility] [place] [address] EMS Patient Care Report Name: CHAYITO MARTINEZ Room #: 436-P [facility] IN M.R.#: [id number] Admission: 11/20/20 Attend Phys: Sissy Benjamin Discharge: Date of : 35 Report #: [id number] v1.1 Copyright 2020 [employer] This EMS Care Summary contains data elements from the applicable legal record (which may be displayed differently). It is designed to provide pertinent information for the following purposes: continuity of care, clinical quality, and state data reporting. The complete legal record is available to ED staff and administrators of the receiving hospital in [facility]'s Patient Tracker. All data is provided "as is."
[~2020-11-20 14:22] MED LIST changes: +ACETAMINOPHEN325 M1 PO; +ALLOPURINOL 10100 M1 PO; +ELIQUIS2.5 MG PO; +LIPITOR 40 MG T40 M1 PO; +OMEPRAZOLE 20 M20 M1 PO; +PREDNISONE 20 M20 M1 PO; +ZESTRIL40 MG PO
[2020-11-20 14:23] VITALS: BP 153/81
[2020-11-20 15:02] LABS: ABSOLUTE NEUTROPHILS 3.7 thou/uL (1.4-8.2); BASOPHILS 0.9 % (0.0-2.0); EOSINOPHILS 2.7 % (0.0-3.0); HEMATOCRIT 30.6 % (37.0-47.0); HEMOGLOBIN 9.6 gm/dL (12.0-15.0); LYMPHOCYTES 9.8 % (24.0-44.0); MCH 26.8 pg (26.0-34.0); MCHC 31.3 g/dL (28.0-37.0); MCV 85.8 fL (80.0-100.0); MONOCYTES 7.7 % (1.0-8.0); PLATELET COUNT 142 thou/uL (150-400); POLYS 78.9 % (36.0-66.0); RBC 3.57 mil/uL (4.20-5.00); RDW 20.1 % (10.5-14.5); WBC 4.7 thou/uL (4.0-11.0)
[2020-11-20 15:13] LABS: CALCIUM 8.6 mg/dL (8.5-10.1); CREATININE 3.1 mg/dL (0.6-1.0); POTASSIUM 4.3 mmol/L (3.5-5.1)
[2020-11-20 15:19] LABS: APTT 30.6 Seconds (24.5-32.8); INR 1.34; PROTIME 14.4 Seconds (10.5-12.1)
[2020-11-20 15:23] LABS: ALBUMIN 2.9 g/dL (3.4-5.0); TOTAL BILIRUBIN 0.7 mg/dL (0.2-1.0); TOTAL PROTEIN 6.2 g/dL (6.4-8.2)
[2020-11-20 16:03] LABS: URINE BILIRUBIN NEGATIVE (Negative); URINE BLOOD NEGATIVE (Negative); URINE COLOR YELLOW; URINE GLUCOSE-RANDOM* NEGATIVE (Negative); URINE KETONES NEGATIVE (Negative); URINE LEUKOCYTES-REFLEX TRACE (Negative); URINE NITRITE-REFLEX NEGATIVE (Negative); URINE PROTEIN (DIPSTICK) 2+ (Negative); URINE SPECIFIC GRAVITY 1.025 (1.005-1.035); URINE UROBILINOGEN 0.2 E.U./dl (0.2-1.0)
[2020-11-20 16:04] LABS: URINE CLARITY SL HAZY
[2020-11-20 16:19] LABS: SQUAMOUS 0-3 Few /LPF (0-3)
[2020-11-20 16:20] LABS: BACTERIA-REFLEX >30 Many /HPF (None Seen); CASTS None Seen /LPF (None Seen); URINE RBC None Seen /HPF (NONE SEEN); URINE WBC-REFLEX 6-15 Few /HPF (0-5)
[2020-11-20 16:21] LABS: AMORPHOUS URATES Many /LPF (None Seen)
[2020-11-20 17:09] VITALS: BP 142/68
[2020-11-20 17:53] VITALS: BP 141/70
[2020-11-20 19:05] VITALS: BP 150/80
--- NOTE | 2020-11-20 23:38 | NUR ---
PT ARRIVED FROM ER @1840 A&OX2 FORGETFUL DTR BY BEDSIDE. ADMISSION DONE AND PT ORIENTED TO THE UNIT. IV INTACT AND FLUIDS INFUSING. FOLLEY INTACT TO D/D PER REPORT PT RECEIVED IV LASIX DOWN IN ER. FALL PREC IN PLACE. EVENING MEDS GIVEN AND PT MICKY IT WELL. ON 5L OF O2. ROOM INFRONT TO NURSES STATION AND WILL CONT TO MONITOR.
[2020-11-21 03:25] LABS: CALCIUM 8.2 mg/dL (8.5-10.1); POTASSIUM 4.3 mmol/L (3.5-5.1)
[2020-11-21 03:34] LABS: PHOSPHORUS 4.7 mg/dL (2.5-4.9)
[2020-11-21 04:00] VITALS: BP 138/74
--- NOTE | 2020-11-21 13:36 | NUR ---
INITIAL ASSESSMENT: Received consult. HENRIETTA reviewed chart and spoke with nursing and attending physician. Pt was admitted from home after a fall. Pt was recently hospitalized at [facility] and discharged home on 11/06 with Aixa . Pt was admitted to [facility] from home for a short term rehab stay. Pt was discharged back home over the holiday weekend and then fell. Pt is currently on 2L of O2. HENRIETTA met with pt and dtr, Sarah, at bedside. Introduced role of SW. Pt was sleeping during time of SW visit. Per Sarah, pt was doing well prior to her hospitalization last month. Pt has a cane and walker to use at home. There are a few steps to enter the home. No steps inside. Pt's PCP is Dr. Chadwick Moznon at [facility]. HENRIETTA discussed discharge needs with pt's dtr: post-acute placement v. home with HH. Pt's dtr states she will discuss with family. Contact info for SW provided. HENRIETTA requested PT/OT evals to be ordered to assist with recommendations for discharge needs. HENRIETTA is following to assist as needed with discharge planning.
[2020-11-21 15:43] VITALS: BP 147/80
--- NOTE | 2020-11-21 19:36 | NUR ---
ASSUMED CARE OF PT AT 0700 THIS MORNING. PT IS MORE ALERT AND COMMUNICATIVE. A/OX3 WITH CONFUSION AND FORGETFULNESS. ASSESSMENTS NOTED IN CHART AND OTHERWISE UNREMARKABLE. FALL PRECAUTIONS ARE IN PLACE. CALL LIGHT AND OTHER NEEDS ARE IN REACH. MEDS AND TX GIVEN NEEDED AND SCHEDULED. WILL MONITOR AND NOTE ANY CHANGES. PT PULLED OUT LT EJ IV AND RT HAND IV IS INFILTRATED. UNABLE TO GAIN IV ACCESS X2. CALLED IV TEAM AND LEFT VMAIL X2. 1630- NOTICED THE [facility] HAS HEMOTURIC DISCHARGE. PAGED DR TONEY AND ALERTED TO CHARGE NURSE ABOUT THE ISSUE. NO CALL BACK FROM DAWNA AND ALY WILL CALL THE WEIGHER AND GRADER.
[2020-11-21 20:40] VITALS: BP 142/69
--- NOTE | 2020-11-22 03:34 | NUR ---
ASSESSED AT START OF SHIFT. PT RESTING IN BED. A&OX2 CONFUSED. NEW IV INSERTED ON LEFT FA. EVENING MEDS GIVEN. FOLLEY INTACT AND DARK COLOR URINE NOTED. IV FLUIDS INFUSING. PT PULLED OUT IV LATER AT NIGHT WILL ATTEMPT A NEW ONE. REPOSITIONED FOR COMFORT FALL PREC IN PLACE AND CALL LIGHT AT REACH WILL CONT TO MONITOR.
[2020-11-22 03:45] LABS: CALCIUM 8.2 mg/dL (8.5-10.1); CREATININE 3.1 mg/dL (0.6-1.0); POTASSIUM 4.1 mmol/L (3.5-5.1)
--- NOTE | 2020-11-22 08:01 | EKG ---
[place] [address] [facility] [place] [address] ELECTROCARDIOGRAM REPORT Name: CHAYITO MARTINEZ Room #: 436-P ADM IN M.R.#: [id number] Admission: 11/20/20 Attend Phys: Sissy Benjamin Discharge: Date of : 35 Report #: [id number] [facility] ED Test Date: 2020-11-20 Test Time: 14:23:24 Pat Name: CHAYITO MARTINEZ Department: Room: 436 Gender: F Senior Auditor: cecilia : 1935 Requested By: Hemant Gore Order Number: [id number] MD: Lavon Gresham Measurements Intervals [place] Rate: 79 P: 20 DE: 206 QRS: 23 QRSD: 114 T: 23 QT: 426 QTc: 489 Interpretive Statements Sinus rhythm Incomplete right bundle branch block Borderline prolonged QT interval Compared to ECG 10/30/2020 18:07:00 Nonspecific change in the T wave abnormality Electronically Signed On 11-22-2020 8:00:50 CDT by Lavon Gresham [email or web address] <ELECTRONICALLY SIGNED> By: Lavon Gresham MD, [facility] 11/22/20 0800 1423 142 Lavon Gresham MD, [facility] /EPI
[2020-11-22 08:48] VITALS: BP 144/68
--- NOTE | 2020-11-22 10:33 | NUR ---
ASSUMED PT CARE THIS AM. PT HAS IV SITE ON [place]. PT IS ALERT & ORIENTED X2. PT IS ON TELE MONITOR ON. PT HAS [facility] CATH IN PLACE. PT IS ON 3L O2 NC. PT TOLERATED MEDICATION AND DIET WELL THIS AM. NO C/O OF PAIN, NAUSEA AND VOMITING. WILL CONTINUE TO MONITOR PT. FOLLOW POC.
[2020-11-22 11:22] VITALS: BP 125/67
[2020-11-22 15:19] VITALS: BP 161/78
--- NOTE | 2020-11-22 15:26 | NUR ---
Case discussed with the care team. Possible dc home with hh tomorrow. [place] MARTINEZ liason to confirm if pt is going to her dtr's home again.
[2020-11-22 15:27] VITALS: BP 161/78
[2020-11-22 17:00] VITALS: BP 161/78
[2020-11-22 19:11] VITALS: BP 163/91
--- NOTE | 2020-11-22 21:40 | NUR ---
ASSUMED CARE OF PT AT 1915. PT IS A&O TO SELF, TIME, & SITUATION. IS ON 3L OF O2/NC. SATS 95%. NO RESPIRATORY DISTRESS NOTED. IS STABLE. DENIES PAIN. KOCH IN PLACE. FLUIDS ENCOURAGED. SLEEP AID ADMINISTERED. CONTINUES ON IV ABTS FOR UTI. GENERALIZED EDEMA NOTED, MORE SO IN ULE. IS ABLE TO TURN SELF IN BED. FALL PRECAUTIONS & HOURLY ROUNDING CONTINUED. CONTINUES ON TELE HR 71. LABS & VITALS REVIEWED. PT IS CURRENTLY SLEEPING. CALL LIGHT WITHIN REACH. WILL CONTINUE TO MONITOR.
[2020-11-23 03:44] VITALS: BP 146/43
[2020-11-23 07:06] LABS: CALCIUM 8.5 mg/dL (8.5-10.1); CREATININE 2.5 mg/dL (0.6-1.0); POTASSIUM 4.2 mmol/L (3.5-5.1)
[2020-11-23 08:11] VITALS: BP 124/62
--- NOTE | 2020-11-23 09:07 | NUR ---
Assumed care of pt at 0700. Pt a&ox3. Denies pain. On 3L O2. Pierson catheter in place. Up to the chair with occupational therapy today. Pt does not express any concerns at this time. Call light within reach. Fall precautions in place. Will continue to monitor.
[2020-11-23] MEDS ORDERED: CEFUROXIME250 MG PO (09:34)
[2020-11-23 11:13] VITALS: BP 161/78
[2020-11-23 11:30] VITALS: BP 120/61
--- NOTE | 2020-11-23 12:41 | NUR ---
Pt dcing home today with dtr Sarah after lunch. HH confirmed with [place]. Pt's dtr requested [employer] SNF listing to be sent home with the pt should she need SNf again in the future. Listing left with nursing to attach to her dc instructions. No other cm interventions indicated at this time.
== END 2020-11-23 14:41 | disposition home health service (06) | DRG 314 ==
LOC: ER 14:22 → 4S 16:29 → EROBS 16:29 → 4S 18:41
PROVIDERS: Emergency Medicine; ADMIT Hospitalist; ATTEND Hospitalist
DX: I95.9 Hypotension, unspecified (principal); N17.0 Acute kidney failure with tubular necrosis; E11.9 Type 2 diabetes mellitus without complications; K21.9 Gastro-esophageal reflux disease without esophagitis; I11.0 Hypertensive heart disease with heart failure; I50.9 Heart failure, unspecified; E86.0 Dehydration; E78.00 Pure hypercholesterolemia, unspecified; M10.9 Gout, unspecified; E03.9 Hypothyroidism, unspecified; Z96.642 Presence of left artificial hip joint; Z04.3 Encounter for examination and observation following other accident; Z60.2 Problems related to living alone; R53.81 Other malaise; Z96.653 Presence of artificial knee joint, bilateral; G47.00 Insomnia, unspecified; K59.00 Constipation, unspecified; R00.1 Bradycardia, unspecified; I71.4 Abdominal aortic aneurysm, without rupture; I25.10 Atherosclerotic heart disease of native coronary artery without angina pectoris; Z20.822 Contact with and (suspected) exposure to COVID-19; W18.30XA Fall on same level, unspecified, initial encounter; Y93.89 Activity, other specified; Y92.89 Other specified places as the place of occurrence of the external cause; Y99.8 Other external cause status; Z79.899 Other long term (current) drug therapy; Z79.01 Long term (current) use of anticoagulants; Z90.49 Acquired absence of other specified parts of digestive tract
CPT/HCPCS: 10100

== ENCOUNTER 2020-12-10 19:25 | Inpatient (IN) | payer MEDICARE ==
[~2020-12-10] VITALS: Ht 160 cm; Wt 95.8 kg
--- NOTE | ~2020-12-10 | HC ---
[facility] [address] CONSULTATION Name: CHAYITO MARTINEZ Room #: 463-P ADM IN M.R.#: [id number] Admission: 12/10/20 Attend Phys: Ramírez Miranda MD Discharge: Date of : 35 Report #: [id number] THIS REPORT FOR: cc: Chadwick Monzon MD, Keninde A. MD Smithson,Felice Alvarez MD ~ DATE OF SERVICE: 12/18/2020 HISTORY OF PRESENT ILLNESS: The patient is an 85-year-old -Stateless female with history of severe pulmonary hypertension who was previously hospitalized at [facility] 10/30/2020 through 11/08/2020. From there, she went for a jail facility stay. She was then discharged to her daughter's house. She was readmitted 11/20/2020 through 11/23/2020 for syncope. She again went home to her daughter's house. She is now readmitted with increased shortness of breath and hypoxia. She was noted to have acute on chronic congestive heart failure. She is being gently diuresed. Pulmonary Medicine is involved and notes that she is making slow progress, although overall her prognosis is poor with her severe pulmonary hypertension. The palliative nurse practitioner also was consulted. We are seeing her in rehabilitation medicine consultation. PAST MEDICAL HISTORY: Severe pulmonary hypertension, chronic AAA, dissecting aneurysm, morbid obesity, left total hip replacement, bilateral knee replacements. She is on 2 liters nasal prong O2 at baseline. MEDICATIONS: Please see the full medication listing. SOCIAL HISTORY: She had been living alone in an apartment, but most recently has been staying at her daughter's house. There are 3 steps in. She was utilizing a front-wheeled walker. REVIEW OF SYSTEMS: Did not offer any current complaints of chest pain, shortness of breath or abdominal discomfort. PHYSICAL EXAMINATION: GENERAL: An 85-year-old overweight, pleasant -Stateless female in no obvious distress. Currently on 4 liters nasal cannula. VITAL SIGNS: Temperature 98.6, pulse 104, respirations 20, blood pressure 154/78. NEUROLOGIC: She is alert and oriented, appears to be a reasonable historian. Facies are symmetric. She does have functional range of motion of both upper extremities with some decreased at end range. I would grade her strength at least a grade 4- to 3+/5. In the lower extremities, she does have some distal lower extremity edema. She has stockings in place below the knee distally. She can wiggle her toes. I would grade her strength at probably a grade 3+/5 to maybe 4-/5. Tone appeared to be intact. She is min assist sit to stand. Gait [address] [address] CONSULTATION Name: CHAYITO MARTINEZ Room #: 463-P [facility] IN M.R.#: [id number] Admission: 12/10/20 Attend Phys: Ramírez Miranda MD Discharge: Date of : 35 Report #: [id number] was 12 feet standby assistance with a front-wheeled walker. Lower extremity dressing is max assist and she needs moderate assist for bathing. ASSESSMENT: An 85-year-old -Stateless female with the following problems: 1. Significant pulmonary debilitation. 2. Severe pulmonary hypertension. 3. Acute on chronic congestive heart failure. 4. Obstructive sleep apnea, on CPAP. 5. Chronic kidney disease stage 3, which appears back to baseline. 6. Hypertension. 7. Hyperlipidemia. 8. Diabetes mellitus type 2. 9. Coronary artery disease with prior coronary artery bypass grafting. 10. Gastroesophageal reflux disease. 11. Anemia of chronic disease. 12. Chronic dissecting AAA. 13. Exogenous obesity. PLAN: Pulmonary input is appreciated with the question of whether she could tolerate an acute rehabilitation level of care. We would agree that skilled appears to be most appropriate in her case and also note that even palliative care is being consulted as noted above. ADDENDUM: It is my understanding that the patient's insurance is out of network for the acute inpatient rehab rodriguez here at [facility]. Again, as above, the most appropriate level of care, what appeared to be a jail facility stay versus possibly hospice and did not feel that she has the tolerance warranted for an acute in-hospital inpatient 5-North rehabilitation stay. Thank you for asking us to assist in this patient's care. By: [id number] Felice Delacruz MD /nt
--- NOTE | ~2020-12-10 | EMS ---
[address] [address] EMS Patient Care Report Name: CHAYITO MARTINEZ Room #: 463-P ADM IN M.R.#: [id number] Admission: 12/10/20 Attend Phys: Ramírez Miranda MD Discharge: Date of : 35 Report #: [id number] THIS REPORT FOR: //name// Report Transmitted: 12/11/2020 12:51 EMS Care Summary [place], [place]/[facility] Incident [id number] @ 12/10/2020 18:48 Incident Location [address] [place], [place] [id number] Patient CHAYITO MARTINEZ Female, 85 Years 1935 Patient Address [address] [place], [place] [id number] Patient History Cardiac Arrythmia,Chronic Obstructive Pulmonary Disease (COPD),Diabetes,Hypertension (HTN),Gout,Edema,Chronic Kidney Disease, Patient Allergies No known allergies, Patient Medications Carvedilol, Atorvastatin, Torsemide, Nortriptyline, Pantoprazole, Amlodipine, Levemir, Allopurinol, Famotidine, Colchicine, Eliquis, Hydralazine, Chief Complaint SOA Disposition Transported No Lights/[place] Dispatch Reason Breathing Problem Transported To [facility] Narrative Pt has been getting SOA when walking. Pt today got up and walked approx 15 ft.Pt was unable to catch breath. Pt has O2 2lpm via O2 concentrator. Pt family [address] [place] [address] EMS Patient Care Report Name: CHAYITO MARTINEZ Room #: 463-P ADM IN M.R.#: [id number] Admission: 12/10/20 Attend Phys: Ramírez Miranda MD Discharge: Date of : 35 Report #: [id number] called 911. Upon Suppressions arrival found pt sitting in chair, O2 sats were in the low 80's. pt O2 bumped up. Upon EMS arrival found pt sitting in chair, A&OX4. pt states that she is still SOA. Pt able to speak in full sentences.. Pt transported to [facility]. No changes en route. pt care transferred to [facility] ED nursing staff. Initial Vitals @19:09P: 73,R: 18,BP: 149/74,GCS: 15,CO: 4,SpO2: 94,Revised Trauma: 12,MT Suspected: false @19:20P: 73,R: 18,BP: 135/78,Pain: 0/10,GCS: 15,SpO2: 99,Revised Trauma: 12, Assessments @18:59MENTAL:Event Oriented,Place Oriented,Person Oriented,Time Oriented,SKIN:HEENT:Head/Face: No Abnormalities,Neck/Airway: No Abnormalities,LUNG SOUNDS:Left Upper: No Abnormalities,Right Upper: No Abnormalities,Left Lower: No Abnormalities,Right Lower: No Abnormalities,ABDOMEN:Left Upper: No Abnormalities,Right Upper: No Abnormalities,Left Lower: No Abnormalities,Right Lower: No Abnormalities,PELVIS//GI:No Abnormalities,EXTREMITIES:Left Arm: No Abnormalities,Right Arm: No Abnormalities,Left Leg: No Abnormalities,Right Leg: No Abnormalities,PULSE:NEURO:No Abnormalities, Impression Shortness of breath Procedures @18:59ALS AssessmentResponse: Unchanged@19:083-Lead ECGResponse: Unchanged@PTAOxygen FlowRate: 6 Device: Nasal Cannula (NC) Response: Improved Timeline GENERAL PURCHASING AGENT,Oxygen FlowRate: 6 Device: Nasal Cannula (NC) Response: Improved 18:47,Call Received 18:47,Dispatch Notified 18:48,Dispatched 18:49,En Route 18:57,On Scene 18:59,At Patient 18:59,ALS Assessment,Response: Unchanged 19:08,3-Lead ECG,Response: Unchanged 19:09,BP: 149/74 M,PULSE: 73,RR: 18 R,SPO2: 94 Ox,ETCO2: ,BG: ,PAIN: ,GCS: 15, 19:10,Depart Scene 19:20,At Destination 19:20,BP: 135/78 M,PULSE: 73,RR: 18 R,SPO2: 99 Ox,ETCO2: ,BG: ,PAIN: 0,GCS: 15, 19:35,Call Closed Disclaimer [facility] [address] [place] [address] EMS Patient Care Report Name: CHAYITO MARTINEZ Room #: 463-P ADM IN M.R.#: [id number] Admission: 12/10/20 Attend Phys: Ramírez Miranda MD Discharge: Date of : 35 Report #: [id number] v1.1 Copyright 2020 [employer] This EMS Care Summary contains data elements from the applicable legal record (which may be displayed differently). It is designed to provide pertinent information for the following purposes: continuity of care, clinical quality, and state data reporting. The complete legal record is available to ED staff and administrators of the receiving hospital in [email or web address]'s Patient Tracker. All data is provided "as is."
[~2020-12-10 19:25] MED LIST changes: +CEFUROXIME250 MG PO
[2020-12-10 19:32] VITALS: BP 146/68
[2020-12-10 21:16] LABS: BE(vivo) -0.1 mmol/L (-2 to +3); HCO3 27.2 mmol/L (22.0-26.0); PCO2 57.1 mmHg (35.0-45.0); PO2 99.4 mmHg (80.0-100.0); sO2 96.8 % (92.0-98.0)
[2020-12-10 21:17] LABS: pH 7.295 (7.360-7.450)
[2020-12-10 21:17] LABS: BASOPHILS 1.3 % (0.0-2.0); EOSINOPHILS 2.7 % (0.0-3.0); HEMATOCRIT 32.7 % (37.0-47.0); HEMOGLOBIN 10.3 gm/dL (12.0-15.0); LYMPHOCYTES 9.5 % (24.0-44.0); MCH 26.7 pg (26.0-34.0); MCHC 31.4 g/dL (28.0-37.0); MCV 85.1 fL (80.0-100.0); MONOCYTES 6.8 % (1.0-8.0); PLATELET COUNT 188 thou/uL (150-400); POLYS 79.7 % (36.0-66.0); RBC 3.85 mil/uL (4.20-5.00); RDW 21.4 % (10.5-14.5)
[2020-12-10 22:03] LABS: ALBUMIN 3.3 g/dL (3.4-5.0); CREATININE 1.8 mg/dL (0.6-1.0); TOTAL BILIRUBIN 0.8 mg/dL (0.2-1.0); TOTAL PROTEIN 6.5 g/dL (6.4-8.2)
[2020-12-11 07:14] VITALS: BP 104/39
[2020-12-11 07:21] LABS: HEMATOCRIT 32.4 % (37.0-47.0); MCH 26.1 pg (26.0-34.0); MCHC 30.7 g/dL (28.0-37.0); MCV 84.7 fL (80.0-100.0); RBC 3.83 mil/uL (4.20-5.00); RDW 21.5 % (10.5-14.5); WBC 5.2 thou/uL (4.0-11.0)
[2020-12-11 07:24] VITALS: BP 104/39
[2020-12-11 07:34] LABS: CALCIUM 8.7 mg/dL (8.5-10.1); CREATININE 1.8 mg/dL (0.6-1.0); POTASSIUM 5.5 mmol/L (3.5-5.1)
[2020-12-11 08:06] VITALS: BP 155/72
--- NOTE | 2020-12-11 08:10 | EKG ---
[address] [address] ELECTROCARDIOGRAM REPORT Name: CHAYITO MARTINEZ Room #: 463-P ADM IN M.R.#: [id number] Admission: 12/10/20 Attend Phys: Ramírez Miranda MD Discharge: Date of : 35 Report #: [id number] [facility] ED Test Date: 2020-12-10 Test Time: 20:09:57 Pat Name: CHAYITO MARTINEZ Department: Room: 463 Gender: F Slot Key Person: maximino : 1935 Requested By: Felice Hernández Order Number: [id number] MD: Niko Tovar Measurements Intervals [place] Rate: 71 P: 19 MA: 186 QRS: 123 QRSD: 103 T: 130 QT: 412 QTc: 448 Interpretive Statements Sinus rhythm Atrial premature complex Probable right ventricular hypertrophy Nonspecific T abnormalities, lateral leads Compared to ECG 11/20/2020 14:23:24 Atrial premature complex(es) now present T-wave abnormality now present Incomplete right bundle-branch block no longer present Electronically Signed On 12-11-2020 8:10:29 CDT by Niko Tovar [email or web address] <ELECTRONICALLY SIGNED> By: Niko Tovar MD, FACC 12/11/20 0810 08 08 Niko Tovar MD, [facility] /EPI
--- NOTE | 2020-12-11 17:01 | NUR ---
PT AMDITTED RELATED TO CHF AND HYPERKALEMIA. CM REVIEWED CHART AND SPOKE WITH CARE TEAM. CM MET WITH PT AND DTR KUMAR AT BEDSIDE THIS DAY. PT APPEARED TO BE A&O X4. CM ROLE INTRODUCED. PT INDICATED SHE HAD BEEN STAYING IN A HOUSE WITH [facility] TRIM MECHANIC AND HAD BEEN ON SERVICE WITH [facility] TRIM MECHANIC. PT INDICATED 3 STEPS TO ENTER HOUSE WITH ALL NEEDS ON 1 LEVEL. PT INDICATED SHE HAS A FWW, HOME O2 THROUGH [facility] AT 2L TRIM MECHANIC AND A CPAP FOR HOME USE. PT AND DTR INDICATED THEY ANTICPATE PT RETURNING TO DTR'S HOUSE WITH RESUMPTION OF HH SERVICES ONCE MEDICALLY STABLE.
[2020-12-11 20:40] VITALS: BP 114/61
--- NOTE | 2020-12-12 04:29 | NUR ---
Pt. rested quietly at intervals during the night when checked on during frequent rounds. She requested po tylenol to help her sleep and med was given (see emar). She offers no c/o shortness of air. Bed alarm is on.
[2020-12-12 08:00] VITALS: BP 130/74
[2020-12-12 08:15] LABS: CALCIUM 8.8 mg/dL (8.5-10.1); CREATININE 2.1 mg/dL (0.6-1.0); POTASSIUM 5.6 mmol/L (3.5-5.1)
--- NOTE | 2020-12-12 15:57 | NUR ---
CM MET WITH PT AND DTR KUMAR THIS DAY. PT AND DTRS KUMAR AND MAYO WANT REFERRALS SENT TO [facility] FOR REVIEW FOR POSSIBLE POSSIBLE SHORT TERM SKILLED REHAB STAY. THEY ALSO WANT A SECONDARY [place] MEDICAID APPLICATION COMPLETED. CM NOTIFIED [facility] AND FAXED REFERRAL TO [facility]. CM ASKED NURSE TO ORDER THERAPY IT HADN'T BEEN ORDERED AT TIME OF THIS NOTE. CM FOLLOWING REGARDING DC PLANNING.
[2020-12-12 16:00] VITALS: BP 140/81
--- NOTE | 2020-12-12 17:23 | NUR ---
assumed care of pt at 0700. increased o2 needs overnight. requiring 6L NC. pt denies feeling worse today. neph consulted for worsening kidney function. up to bsc w/ sba assist. socializing with family at bedside. blood sugars controlled. wcm.
[2020-12-12 20:05] VITALS: BP 141/71
--- NOTE | 2020-12-13 04:36 | NUR ---
Assume pt care at 1900. A/OX4,pleasant. VSS. Up with SBA to BSC w/o any problems. Denies pain on assessment. Fall precautions in place calls approp for help. SR on telemetry. Resting quietlya t this time,will continue to monitor pt.
[2020-12-13 09:01] LABS: CALCIUM 8.8 mg/dL (8.5-10.1); CREATININE 2.3 mg/dL (0.6-1.0); POTASSIUM 5.1 mmol/L (3.5-5.1)
[2020-12-13 15:36] VITALS: BP 141/71
--- NOTE | 2020-12-13 15:58 | NUR ---
THERAPY ASSESSED PT THIS DAY. CM CALLED AND CONFIRMED THAT [place] [facility] [place]OTT[place] REFERRAL INFO SENT YESTERDAY. CM FAXED THERAPY EVALS AND UPDATED CLINICAL THIS AM. CM FOLLOWING REGARDING DC PLANNING.
--- NOTE | 2020-12-13 18:51 | NUR ---
END SHIFT NOTE: UNEVENTFUL SHIFT. PT REMAINED ON 5L OF O2 , SAFE AND COMFORTABLE UNSUCCESFULL WEANING PROCESS VSS , AFEBRILE, NO OTHER CONCERNS.
[2020-12-13 19:22] VITALS: BP 136/62
--- NOTE | 2020-12-14 04:50 | NUR ---
Pt A/OX4,VSS. Does have dyspnea on exertion,oxygen on @5L/NC. Up with AX1. C/o right knee pain/constipation medicated per EMAR,no BM yet. Edema persits on BLE,encouraged to keep extremities as tolorated.Fall precautions in place. SR on telemetry.
[2020-12-14 08:12] VITALS: BP 152/65
[2020-12-14 12:58] LABS: CALCIUM 9.2 mg/dL (8.5-10.1); CREATININE 2.1 mg/dL (0.6-1.0); POTASSIUM 4.9 mmol/L (3.5-5.1)
[2020-12-14 15:20] VITALS: BP 139/70
--- NOTE | 2020-12-14 16:02 | NUR ---
CARE ASSUMED THIS AM, PT ALERT AND ORIENTED X3 TO 4 AT TIMES. DENIES ANY PAIN, NAUSEA AND VOMITTING. CURRENTLY ON 4L OF OXYGEN, BASELINE AROUND 2-3L. UP IN THE CHAIR, AND 1 ASSIST TO THE BSC. PT DAUGHTER VISITING AND UPDATED ABOUT PT CARE. FALL PRCAUTIONS IN PLACE. DENIES ANY NEEDS AT MOMENT.
[2020-12-14 20:07] VITALS: BP 150/80
--- NOTE | 2020-12-15 04:11 | NUR ---
Pt. rested quietly at intervals during the night when checked on during frequent rounds. This am patient became confused upon awakening. She knew she was in the hospital, but did not know why and she began to cry. This nurse explained to why she was here and she calmed down.
[2020-12-15 07:15] VITALS: BP 174/75
[2020-12-15 10:04] LABS: ALBUMIN 3.4 g/dL (3.4-5.0); CALCIUM 9.3 mg/dL (8.5-10.1); PHOSPHORUS 4.1 mg/dL (2.6-4.7); POTASSIUM 4.5 mmol/L (3.5-5.1)
--- NOTE | 2020-12-15 16:04 | NUR ---
CARE TEAM INDICATED THAT PT ISN'T MEDICALLY STABLE TO DC TO SKILLED AT [facility] THIS DAY THAT PT'S O2 SATS INCREASED TO 8 WITH AMBULATION THIS AM. CM NOTIFIED [facility] AND THEY INDICATED THAT THEY HAD AUTH BUT THAT IT EXPIRES THIS DAY. HOSPITALIST CONSULTED PALLIATIVE SENIOR STEREO COMPILER TEAM LEAD. SHOULD PT AND FAMILY WANT SHORT TERM SKILLED STAY UPON DC NEW AUTH WOULD BE NEEDED. LIKELY NO DC OVER WEEKEND. CM FOLLOWING REGARDING DC PLANNING.
[2020-12-15 20:39] VITALS: BP 150/74
[2020-12-16 00:17] VITALS: BP 151/75
--- NOTE | 2020-12-16 03:43 | NUR ---
Pt. rested quietly at intervals during the night when checked on during frequent rounds. Assisted up to the bedside comode with assistance of one. Pt. offers no c/o pain. Bed alarm is on.
[2020-12-16 05:14] VITALS: BP 149/71
[2020-12-16 05:36] LABS: ALBUMIN 3.2 g/dL (3.4-5.0); CALCIUM 9.5 mg/dL (8.5-10.1); CREATININE 1.8 mg/dL (0.6-1.0); PHOSPHORUS 3.4 mg/dL (2.6-4.7); POTASSIUM 4.3 mmol/L (3.5-5.1)
[2020-12-16 07:40] VITALS: BP 141/78
[2020-12-16 12:19] VITALS: BP 162/51
--- NOTE | 2020-12-16 16:44 | NUR ---
Assumed pt care this am, maintained on 4 L of O2 via NC, pt wound desat with the slightest activity. BLE knee high margret hose in place. Diet and medications are tolerated well. Uses the bedside commode, POC followed. SOB is very noticable with activity, MD aware. Seen by pulmonary, plan is for pt to go to a skilled, CM to be informed on the weekday.
[2020-12-16 20:30] VITALS: BP 152/64
[2020-12-17 04:20] VITALS: BP 154/53
[2020-12-17 04:58] LABS: HEMATOCRIT 31.3 % (37.0-47.0); HEMOGLOBIN 9.6 gm/dL (12.0-15.0); MCH 26.4 pg (26.0-34.0); MCHC 30.8 g/dL (28.0-37.0); MCV 85.8 fL (80.0-100.0); RBC 3.65 mil/uL (4.20-5.00); RDW 21.2 % (10.5-14.5); WBC 5.5 thou/uL (4.0-11.0)
--- NOTE | 2020-12-17 06:19 | NUR ---
PT SLEPT THROUGH THE NIGHT, NOTED STATUS CHANGE/CONFUSED AT 0400AM, VITAL SIGNS COMPLETED RANGES WITHIN PT BASELINE, PT REASSESSED AT 0415 ORIENTED X4, NOTIFIED DRUM DRIER ANIMAL BEHAVIORIST, PT CONTINUES TO BE MONITORED CLOSELY, NEURO STATUS REMAINS INTACT. PT RESUMDED SLEEPNG. CONTINENT OF B & B, VOICES NO NEED AT THIS TIME, REPORTS NO PAIN OR DISCOMFORT.
[2020-12-17 07:53] VITALS: BP 179/83
[2020-12-17 11:34] VITALS: BP 147/82
[2020-12-17 16:34] VITALS: BP 167/88
[2020-12-17 19:18] VITALS: BP 160/86
--- NOTE | 2020-12-17 19:22 | NUR ---
Assumed pt care this am, SOB noted with movement. Refused blood sugars in the pm since pt was eating her lunch at 5 pm. Uses the commode but would desaturate in the 80's, this was remediated when O2 was elevated from 4 to 6. POC followed, no pain was noted, edema still evident. Daughter was at the bed side in the pm. Endorsed to the night nurse.
[2020-12-18 01:23] VITALS: BP 157/76
--- NOTE | 2020-12-18 02:52 | NUR ---
PT STAYED UP MOST PART OF THE NIGHT, WITH MULTIPLE AMBULATION TO THE COMMODE. PT WAS UNSUCCESFUL TO ELIMINATE IN ALL ATTEMPTS, REPORTS NO PAIN OR DISCOMFORT, TOLARATED MEDICATION WELL, NO ADVERSE REACTION NOTED. WILL CONTINUE TO MONITOR.
[2020-12-18 04:50] VITALS: BP 141/74
[2020-12-18 05:53] LABS: ALBUMIN 3.2 g/dL (3.4-5.0); CALCIUM 9.4 mg/dL (8.5-10.1); CREATININE 1.6 mg/dL (0.6-1.0); PHOSPHORUS 2.6 mg/dL (2.6-4.7); POTASSIUM 3.5 mmol/L (3.5-5.1)
[2020-12-18 07:41] VITALS: BP 154/78
--- NOTE | 2020-12-18 09:45 | NUR ---
Assess for length of stay. admit with acute on chronic respiratory failure, CHF. Advanced age 85. Wt is obese, stable. Tolerating diet, eating >50% most meals. BG controlled. DC planning in progress. Low nutrition risk
[2020-12-18 12:00] VITALS: BP 146/88
[2020-12-18] MEDS ORDERED: DEMADEX20 MG PO (15:38)
[2020-12-18] MEDS ORDERED: HYDRALAZINE 10M10 MG PO (15:38)
[2020-12-18] MEDS ORDERED: VELTASSA8.4 GM PO (15:38)
--- NOTE | 2020-12-18 16:05 | NUR ---
CARE TEAM INDICATED THAT PT IS MEDICALLY STABLE TO [place] [facility] [place]. PALLIATIVE CARE BANK TELLER VISITED WITH PT AND IT WAS DETERMINED THAT PT WANTS TO DO SHORT TERM SKILLED REHAB AND OPTIMIZE MOBILITY AND INDEPENDANCE. PT AWARE OF PALLIATIVE CARE SERVICES AND MY LOOK TO ELECT THEM IN THE FUTURE. CM NOTIFIED PT AND DTR MAYO. VAN TRANSPORT WITH 4L O2 ARRANGED FOR 1600. CHART COPY MADE. ORDERS FAXED. NURSE CALLED REPORT TO COMMUNITY. NO OTHER CM INTERVENTION INDICATED. CASE CLOSED.
--- NOTE | 2020-12-18 17:44 | NUR ---
Assumed pt care at 7am.Pt in bed resting and waiting for breakfast. Assessment completed.vss.Pt tolerated meds and diet. Dr Miranda here, dc order noted. Report called to Joe mariano at [facility]. Family notified about pt dc to [facility]. At 1630,pt dc to [facility] per van.
== END 2020-12-18 16:30 | DRG 291 ==
LOC: ER 19:25 → EROBS 22:19 → 4W 22:19 → 3W 12-11 06:46 → 4W 12-11 07:16
PROVIDERS: Emergency Medicine; Internal Medicine; Internal Medicine Cardiovascular Disease; Internal Medicine Nephrology; Nurse Practitioner Adult Health; Nurse Practitioner Family; ADMIT Hospitalist; ATTEND Hospitalist
DX: I13.0 Hypertensive heart and chronic kidney disease with heart failure and stage 1 through stage 4 chronic kidney disease, or unspecified chronic kidney disease (principal); J96.22 Acute and chronic respiratory failure with hypercapnia; I71.02 Dissection of abdominal aorta; J96.21 Acute and chronic respiratory failure with hypoxia; I50.33 Acute on chronic diastolic (congestive) heart failure; N17.9 Acute kidney failure, unspecified; E87.5 Hyperkalemia; E11.22 Type 2 diabetes mellitus with diabetic chronic kidney disease; I25.10 Atherosclerotic heart disease of native coronary artery without angina pectoris; E66.01 Morbid (severe) obesity due to excess calories; G47.33 Obstructive sleep apnea (adult) (pediatric); Z20.822 Contact with and (suspected) exposure to COVID-19; K21.9 Gastro-esophageal reflux disease without esophagitis; E78.00 Pure hypercholesterolemia, unspecified; M10.9 Gout, unspecified; Z96.653 Presence of artificial knee joint, bilateral; R53.81 Other malaise; I27.21 Secondary pulmonary arterial hypertension; Z96.642 Presence of left artificial hip joint; E78.5 Hyperlipidemia, unspecified; D63.8 Anemia in other chronic diseases classified elsewhere; I07.1 Rheumatic tricuspid insufficiency; I27.81 Cor pulmonale (chronic); N18.32 Chronic kidney disease, stage 3b; I48.91 Unspecified atrial fibrillation; Z23 Encounter for immunization; Z66 Do not resuscitate; Z95.1 Presence of aortocoronary bypass graft; Z98.49 Cataract extraction status, unspecified eye; Z68.37 Body mass index [BMI] 37.0-37.9, adult; Z79.82 Long term (current) use of aspirin; Z79.899 Other long term (current) drug therapy; Z82.49 Family history of ischemic heart disease and other diseases of the circulatory system; Z83.3 Family history of diabetes mellitus; Z79.52 Long term (current) use of systemic steroids; Z51.5 Encounter for palliative care
CPT/HCPCS: 10045